=== PATIENT | male | born 1940 | race Caucasian/White ===

== ENCOUNTER 2017-10-05 12:36 | Outpatient (CLI) | payer MEDICARE, BC ==
[~2017-10-05 12:36] MED LIST: ALBU8.5H8 INH; ALPR-624 PO; ASPI-1071 PO; ATOR10TA87 PO; BENA20TA2 PO; CALC-1197 PO; COU5T PO; ESCI5TAB PO; FURO80TA87 PO; GABA-532 PO; HYDR-3972 PO; KRIL1CAP19 PO; MULT-1085 PO; OMEP40CA37 PO; POTA10TA10 PO; ROPI2TAB PO; SOTA80TA69 PO; TRAM50TA2 PO; TURM500C4 PO
== END 2017-10-05 23:59 | disposition home or self-care (01) ==
LOC: CARD DIAG 12:36
PROVIDERS: ATTEND Internal Medicine Cardiovascular Disease
DX: I08.1 Rheumatic disorders of both mitral and tricuspid valves (principal); I77.810 Thoracic aortic ectasia; J44.9 Chronic obstructive pulmonary disease, unspecified; I10 Essential (primary) hypertension; Z95.2 Presence of prosthetic heart valve; Z85.46 Personal history of malignant neoplasm of prostate
CPT/HCPCS: 93306

== ENCOUNTER → 2018-03-07 | Emergency (ER) | payer MEDICARE, BC ==
[~2018-03-07] VITALS: Ht 172.7 cm; Wt 98.0 kg
[~2018-03-07] MED LIST changes: +LIDOcaine 1.5% w/epinephrine 1:200,000 5ml ampul IJ ONE
[2018-03-07 08:14] VITALS: BP 98/56
== END | disposition home or self-care (01) ==
LOC: ER 08:13
DX: S61.512A Laceration without foreign body of left wrist, initial encounter (principal); Z95.0 Presence of cardiac pacemaker; Z88.8 Allergy status to other drugs, medicaments and biological substances; Z88.2 Allergy status to sulfonamides; Z79.82 Long term (current) use of aspirin; Z79.899 Other long term (current) drug therapy; Z79.01 Long term (current) use of anticoagulants; W26.0XXA Contact with knife, initial encounter; Y93.89 Activity, other specified; Y92.89 Other specified places as the place of occurrence of the external cause; Y99.8 Other external cause status
CPT/HCPCS: 12002; 99283; A6449; J3490

== ENCOUNTER 2018-04-13 18:35 | Emergency (ER) | payer MEDICARE, BC ==
[~2018-04-13] VITALS: Ht 172.7 cm; Wt 87.3 kg
[~2018-04-13 18:35] MED LIST changes: -LIDOcaine 1.5% w/epinephrine 1:200,000 5ml ampul IJ ONE; -SOTA80TA69 PO; +SOTA80TA73 PO
[2018-04-13 19:20] LABS: BASOPHILS % (AUTO) 0.9 % (0-1); EOSINOPHILS # (AUTO) 0.3 X10'3 (0-0.9); EOSINOPHILS % (AUTO) 4.6 % (0-6); HEMATOCRIT 39.5 % (42.0-52.0); HEMOGLOBIN 13.2 g/dl (14.0-17.9); LYMPHOCYTES # (AUTO) 1.8 X10'3 (1.1-4.8); LYMPHOCYTES % (AUTO) 32.2 % (21-51); MEAN CORPUSCULAR HEMOGLOBIN 32.3 PG (27.0-31.0); MEAN CORPUSCULAR HGB CONC 33.5 % (33.0-36.5); MEAN CORPUSCULAR VOLUME 96.3 FL (78-98); MEAN PLATELET VOLUME 5.9 FL (7.4-10.4); MONOCYTES # (AUTO) 0.5 X10'3 (0-0.9); MONOCYTES % (AUTO) 9.1 % (2-12); NEUTROPHILS # (AUTO) 3.1 X10'3 (1.8-7.7); NEUTROPHILS % (AUTO) 53.2 % (42-75); PLATELET COUNT 221 X10'3 (140-440); RED CELL DISTRIBUTION WIDTH 13.7 % (11.5-14.5); WHITE BLOOD COUNT 5.7 X10'3 (4.5-11.0)
[2018-04-13 19:31] LABS: INR 2.2 INR; PARTIAL THROMBOPLASTIN TIME 35 SECONDS (22-32); PROTHROMBIN TIME 22.3 SECONDS (9.0-12.0)
[2018-04-13 19:35] LABS: ALANINE AMINOTRANSFERASE 41 U/L (12-78); ALBUMIN 3.1 G/DL (3.4-5.0); ALBUMIN/GLOBULIN RATIO 0.8 (1.1-1.5); ALKALINE PHOSPHATASE 115 IU/L (46-116); ANION GAP 6 (8-16); ASPARTATE AMINO TRANSFERASE 30 U/L (10-37); BILIRUBIN,TOTAL 0.3 MG/DL (0.1-1.0); BLOOD UREA NITROGEN 29 MG/DL (7-18); BUN/CREATININE RATIO 28.4 (5.4-32.0); CALCIUM 8.2 MG/DL (8.5-10.1); CHLORIDE 102 MMOL/L (99-107); CREATININE 1.02 MG/DL (0.60-1.10); GLUCOSE 113 MG/DL (70-104); POTASSIUM 4.2 MMOL/L (3.5-5.1); SODIUM 137 MMOL/L (135-145); TOTAL CARBON DIOXIDE 29.5 MMOL/L (24-32); TOTAL PROTEIN 6.8 G/DL (6.4-8.2); eGFR 71 ML/MIN
[2018-04-13] MEDS ORDERED: normal saline 1000ML IV soln IVB ONE (20:55)
[2018-04-13 22:03] LABS: CLARITY,URINE CLEAR (Clear); COLOR,URINE YELLOW (Yellow); GLUCOSE, URINE NEGATIVE (Neg); KETONES,URINE NEGATIVE (Neg); LEUKOCYTE ESTERASE ,URINE NEGATIVE (Neg); NITRITES, URINE NEGATIVE (Neg); OCCULT BLOOD,URINE NEGATIVE (Neg); PH,URINE 5.5 (4.8-8.0); PROTEIN,URINE NEGATIVE (Neg); UA COLLECTION TYPE URINAL; UROBILINOGEN,URINE 0.2 E.U/dL (0.2-1.0)
[2018-04-13 22:18] VITALS: BP 109/68
== END 2018-04-13 22:25 | disposition home or self-care (01) ==
LOC: ER 18:36
DX: I95.9 Hypotension, unspecified (principal); Z95.0 Presence of cardiac pacemaker; Z88.8 Allergy status to other drugs, medicaments and biological substances; Z88.2 Allergy status to sulfonamides; Z79.01 Long term (current) use of anticoagulants; Z79.899 Other long term (current) drug therapy; Z79.82 Long term (current) use of aspirin
CPT/HCPCS: 36415; 71045; 80053; 81003; 84484; 85025; 85610; 85730; 93005; 99285; J7030

== ENCOUNTER 2018-06-08 21:11 | Emergency (ER) | payer MEDICARE, BC ==
[~2018-06-08] VITALS: Ht 172.7 cm; Wt 92.3 kg
[~2018-06-08 21:11] MED LIST changes: -ASPI-1071 PO; -BENA20TA2 PO; +BENA20TA82 PO; -KRIL1CAP19 PO
[2018-06-08 22:39] VITALS: BP 128/71
== END 2018-06-08 22:49 | disposition home or self-care (01) ==
LOC: ER 21:12
DX: S51.011A Laceration without foreign body of right elbow, initial encounter (principal); S80.211A Abrasion, right knee, initial encounter; Z88.1 Allergy status to other antibiotic agents; Z88.2 Allergy status to sulfonamides; Z79.899 Other long term (current) drug therapy; Z79.01 Long term (current) use of anticoagulants; Z95.0 Presence of cardiac pacemaker; W18.30XA Fall on same level, unspecified, initial encounter; Y93.89 Activity, other specified; Y92.098 Other place in other non-institutional residence as the place of occurrence of the external cause; Y99.8 Other external cause status
CPT/HCPCS: 99284; A6223; A6255; A6446; A6449

== ENCOUNTER 2018-12-28 13:28 | Outpatient (CLI) | payer MEDICARE, BC | END 2018-12-28 23:59 | disposition home or self-care (01) | LOC: CARD DIAG 13:28 | PROVIDERS: ATTEND Internal Medicine Cardiovascular Disease | DX: I08.1 Rheumatic disorders of both mitral and tricuspid valves (principal); I11.0 Hypertensive heart disease with heart failure; I50.22 Chronic systolic (congestive) heart failure; J44.9 Chronic obstructive pulmonary disease, unspecified; Z96.643 Presence of artificial hip joint, bilateral; Z96.652 Presence of left artificial knee joint; Z96.611 Presence of right artificial shoulder joint; Z88.1 Allergy status to other antibiotic agents; Z88.2 Allergy status to sulfonamides | CPT/HCPCS: 93306 ==

== ENCOUNTER 2019-01-03 07:36 | Outpatient (CLI) | payer MEDICARE, BC ==
[2019-01-03] VITALS (21 sets, daily range): BP systolic 73–109; BP diastolic 40–67
== END 2019-01-03 23:59 | disposition home or self-care (01) ==
LOC: CARD DIAG 07:36
PROVIDERS: ATTEND Internal Medicine Cardiovascular Disease
DX: R42 Dizziness and giddiness (principal); I10 Essential (primary) hypertension; J44.9 Chronic obstructive pulmonary disease, unspecified; Z87.891 Personal history of nicotine dependence; Z96.643 Presence of artificial hip joint, bilateral; Z96.652 Presence of left artificial knee joint; Z96.611 Presence of right artificial shoulder joint
CPT/HCPCS: 93660

== ENCOUNTER 2019-02-16 13:13 | Emergency (ER) | payer MEDICARE, BC ==
[~2019-02-16] VITALS: Ht 172.7 cm; Wt 93.0 kg
[2019-02-16 14:10] LABS: CLARITY,URINE CLEAR (Clear); COLOR,URINE YELLOW (Yellow); GLUCOSE, URINE NEGATIVE (Neg); KETONES,URINE NEGATIVE (Neg); LEUKOCYTE ESTERASE ,URINE NEGATIVE (Neg); NITRITES, URINE NEGATIVE (Neg); OCCULT BLOOD,URINE NEGATIVE (Neg); PH,URINE 5.5 (4.8-8.0); PROTEIN,URINE NEGATIVE (Neg); UROBILINOGEN,URINE 0.2 E.U/dL (0.2-1.0)
[2019-02-16 14:11] LABS: UA COLLECTION TYPE VOIDED
[2019-02-16 14:38] LABS: BASOPHILS % (AUTO) 0.4 % (0-1); EOSINOPHILS # (AUTO) 0.1 X10'3 (0-0.9); EOSINOPHILS % (AUTO) 1.6 % (0-6); HEMATOCRIT 39.6 % (42.0-52.0); LYMPHOCYTES # (AUTO) 1.4 X10'3 (1.1-4.8); MEAN CORPUSCULAR HEMOGLOBIN 31.2 PG (27.0-31.0); MEAN CORPUSCULAR HGB CONC 32.8 g/dL (33.0-36.5); MEAN PLATELET VOLUME 6.1 FL (7.4-10.4); MONOCYTES # (AUTO) 0.7 X10'3 (0-0.9); MONOCYTES % (AUTO) 8.9 % (2-12); NEUTROPHILS # (AUTO) 5.8 X10'3 (1.8-7.7); NEUTROPHILS % (AUTO) 72.1 % (42-75); PLATELET COUNT 227 X10'3 (140-440); RED BLOOD COUNT 4.16 X10'6 (4.70-6.10); RED CELL DISTRIBUTION WIDTH 15.5 % (11.5-14.5); WHITE BLOOD COUNT 8.1 X10'3 (4.5-11.0)
[2019-02-16 14:46] LABS: ALBUMIN 3.2 G/DL (3.4-5.0); ANION GAP 10 (8-16); BLOOD UREA NITROGEN 45 MG/DL (7-18); BUN/CREATININE RATIO 44.6 (5.4-32.0); CALCIUM 8.4 MG/DL (8.5-10.1); CHLORIDE 103 MMOL/L (99-107); CREATININE 1.01 MG/DL (0.60-1.10); GLUCOSE 98 MG/DL (70-104); POTASSIUM 3.6 MMOL/L (3.5-5.1); SODIUM 140 MMOL/L (135-145); TOTAL CARBON DIOXIDE 26.9 MMOL/L (24-32); eGFR 72 ML/MIN
[2019-02-16 16:00] VITALS: BP 104/62
== END 2019-02-16 16:01 | disposition home or self-care (01) ==
LOC: ER 13:14
DX: K92.2 Gastrointestinal hemorrhage, unspecified (principal); F17.210 Nicotine dependence, cigarettes, uncomplicated; Z95.0 Presence of cardiac pacemaker; Z88.1 Allergy status to other antibiotic agents; Z88.2 Allergy status to sulfonamides; Z88.8 Allergy status to other drugs, medicaments and biological substances
CPT/HCPCS: 36415; 80048; 81003; 85025; 93005; 99284

== ENCOUNTER 2020-04-10 06:44 | Day surgery (SDC) | payer MEDICARE, BC ==
[2020-04-09 14:42] LABS: BASOPHILS % (AUTO) 0.8 % (0-1); EOSINOPHILS # (AUTO) 0.3 X10'3 (0-0.9); EOSINOPHILS % (AUTO) 5.4 % (0-6); HEMATOCRIT 34.4 % (42.0-52.0); HEMOGLOBIN 10.9 g/dl (14.0-17.9); LYMPHOCYTES # (AUTO) 1.2 X10'3 (1.1-4.8); LYMPHOCYTES % (AUTO) 20.6 % (21-51); MEAN CORPUSCULAR HGB CONC 31.6 g/dL (33.0-36.5); MEAN CORPUSCULAR VOLUME 88.4 FL (78-98); MEAN PLATELET VOLUME 6.2 FL (7.4-10.4); MONOCYTES # (AUTO) 0.6 X10'3 (0-0.9); MONOCYTES % (AUTO) 10.1 % (2-12); NEUTROPHILS # (AUTO) 3.8 X10'3 (1.8-7.7); NEUTROPHILS % (AUTO) 63.1 % (42-75); PLATELET COUNT 198 X10'3 (140-440); RED BLOOD COUNT 3.89 X10'6 (4.70-6.10)
[2020-04-09 14:53] LABS: ANION GAP 9 (8-16); BLOOD UREA NITROGEN 28 MG/DL (7-18); CALCIUM 8.4 MG/DL (8.5-10.1); CHLORIDE 108 MMOL/L (99-107); GLUCOSE 103 MG/DL (70-104); POTASSIUM 3.8 MMOL/L (3.5-5.1); SODIUM 146 MMOL/L (135-145); TOTAL CARBON DIOXIDE 28.9 MMOL/L (24-32); eGFR 72 ML/MIN
[2020-04-09 14:56] LABS: PARTIAL THROMBOPLASTIN TIME 29 SECONDS (22-32)
[2020-04-10] VITALS (15 sets, daily range): BP systolic 103–158; BP diastolic 50–92
[~2020-04-10] VITALS: Ht 172.7 cm; Wt 109.7 kg
[~2020-04-10 06:44] MED LIST changes: -ALPR-624 PO; -BENA20TA82 PO; +BUSP10TA3 PO; -COU5T PO; +FERR325T28 PO; +MECL-159 PO; -OMEP40CA37 PO; +PANT40TA4 PO; +SUCR1TAB34 PO; -TRAM50TA2 PO; -TURM500C4 PO; +WARF-113 PO
[2020-04-10] MEDS ORDERED: normal saline 1,000 ML IV SCH (07:05)
[2020-04-10] MEDS ORDERED: LORazepam 0.5 MG tablet PO PRN (07:05)
[2020-04-10] MEDS ORDERED: diphenhydrAMINE 25mg capsule PO PRN (07:05)
[2020-04-10] MEDS ORDERED: VITAMIN D3 (07:57)
[2020-04-10] MEDS ORDERED: KRIL500C PO (07:57)
[2020-04-10] MEDS ORDERED: FURO40TA4 PO (07:57)
[2020-04-10] MEDS ORDERED: WARF-113 PO (07:57)
[2020-04-10] MEDS ORDERED: OMEP-50 PO (07:57)
[2020-04-10] MEDS ORDERED: WARF6TAB PO (07:57)
[2020-04-10] MEDS ORDERED: CALCIUM (07:57)
[2020-04-10] MEDS ORDERED: fentaNYL/PF 50MCG/1 ML 2ML syringe ONE (08:56)
[2020-04-10] MEDS ORDERED: verapamil 2.5 mg/ml inj IV ONE (08:56)
[2020-04-10] MEDS ORDERED: nitroGLYCERIN-Tridil 50MG/D5W 250 ML IV ONE (08:56)
[2020-04-10] MEDS ORDERED: LIDOcaine 1% (10mg/ml)w/preservative injection 20ml MDV ONE (08:57)
[2020-04-10] MEDS ORDERED: heparin 1,000unit/ml 10ml vial 10 ML ONE (08:57)
[2020-04-10] MEDS ORDERED: midazolam 2 mg/2 ml injection ONE (08:57)
[2020-04-10] MEDS ORDERED: iohexol 350 MG/ML 50ML vial IV ONE (08:57)
[2020-04-10] MEDS ORDERED: iohexol 350MG/ML 100ml bottle IV ONE (08:57)
[2020-04-10] MEDS ORDERED: furosemide 40mg/4ml inj IV ONE (11:05)
[2020-04-10] MEDS ORDERED: potassium Cl 20 mEq SR tablet PO STA (11:05)
[2020-04-10 13:01] LABS: ISTAT HGB ART 10.9 g/dl (14.0-18.0); ISTAT Hct ART 32 %PCV (42-52); ISTAT O2 SATURATION ARTERIAL 99 % (95-98); ISTAT SOURCE ART
--- NOTE | 2020-04-10 15:00 | NUR ---
vascular band removed, cleansed with sterile 4x4 and N.S., site dressed with sterile 2x2 and tegaderm. folded 4x4 and coban placed over drsg for support and slight pressure, pt aware may remove outer drsg for comfort. pt states understanding.
== END 2020-04-10 17:00 | disposition home or self-care (01) ==
LOC: SSTAY O 06:44
PROVIDERS: ATTEND Internal Medicine Cardiovascular Disease
DX: R94.39 Abnormal result of other cardiovascular function study (principal); I25.10 Atherosclerotic heart disease of native coronary artery without angina pectoris; E78.5 Hyperlipidemia, unspecified; I48.0 Paroxysmal atrial fibrillation; I11.0 Hypertensive heart disease with heart failure; I50.30 Unspecified diastolic (congestive) heart failure; G47.30 Sleep apnea, unspecified; E66.3 Overweight; Z68.36 Body mass index [BMI] 36.0-36.9, adult; I27.89 Other specified pulmonary heart diseases; I34.0 Nonrheumatic mitral (valve) insufficiency; Z95.5 Presence of coronary angioplasty implant and graft; Z95.4 Presence of other heart-valve replacement; Z79.899 Other long term (current) drug therapy; Z98.890 Other specified postprocedural states; Z89.422 Acquired absence of other left toe(s); Z95.0 Presence of cardiac pacemaker; Z98.84 Bariatric surgery status; Z72.89 Other problems related to lifestyle; Z87.891 Personal history of nicotine dependence; Z82.49 Family history of ischemic heart disease and other diseases of the circulatory system; Z80.42 Family history of malignant neoplasm of prostate
CPT/HCPCS: 36415; 80048; 82803; 85014; 85025; 85610; 85730; 93005; 93460; 99152; 99153; C1769; C1894; J1644; J1940; J2001; J2250; J3010; J7030; Q9967; A4620; J3490

== ENCOUNTER 2021-02-24 12:49 | Emergency (ER) | payer MEDICARE, BC ==
[~2021-02-24] VITALS: Ht 172.7 cm; Wt 97.7 kg
[~2021-02-24 12:49] MED LIST changes: -ALBU8.5H8 INH; -BUSP10TA3 PO; -CALC-1197 PO; +CALCIUM; -FERR325T28 PO; +FURO40TA4 PO; -FURO80TA87 PO; -HYDR-3972 PO; +KRIL500C PO; -MECL-159 PO; +OMEP-50 PO; -PANT40TA4 PO; -SUCR1TAB34 PO; +VITAMIN D3; +WARF6TAB PO
[2021-02-24 13:35] VITALS: BP 159/75
[2021-02-24 14:47] LABS: BASOPHILS # (AUTO) 0.1 X10'3 (0-0.2); EOSINOPHILS # (AUTO) 0.1 X10'3 (0-0.9); HEMOGLOBIN 13.3 g/dl (14.0-17.9)
[2021-02-24 14:50] LABS: BASOPHILS % (AUTO) 0.9 % (0-1); HEMATOCRIT 40.9 % (42.0-52.0); LYMPHOCYTES # (AUTO) 1.3 X10'3 (1.1-4.8); LYMPHOCYTES % (AUTO) 21.6 % (21-51); MEAN CORPUSCULAR HEMOGLOBIN 29.6 PG (27.0-31.0); MEAN CORPUSCULAR HGB CONC 32.5 g/dL (33.0-36.5); MEAN CORPUSCULAR VOLUME 90.9 FL (78-98); MEAN PLATELET VOLUME 6.8 FL (7.4-10.4); MONOCYTES # (AUTO) 0.6 X10'3 (0-0.9); MONOCYTES % (AUTO) 10.1 % (2-12); NEUTROPHILS # (AUTO) 3.8 X10'3 (1.8-7.7); NEUTROPHILS % (AUTO) 65.4 % (42-75); PLATELET COUNT 182 X10'3 (140-440); RED CELL DISTRIBUTION WIDTH 17.3 % (11.5-14.5); WHITE BLOOD COUNT 5.9 X10'3 (4.5-11.0)
[2021-02-24 14:58] LABS: ALANINE AMINOTRANSFERASE 37 U/L (12-78); ALBUMIN 3.3 G/DL (3.4-5.0); ALKALINE PHOSPHATASE 87 IU/L (46-116); ANION GAP 8 (8-16); ASPARTATE AMINO TRANSFERASE 31 U/L (10-37); BILIRUBIN,TOTAL 0.5 MG/DL (0.1-1.0); BLOOD UREA NITROGEN 16 MG/DL (7-18); BUN/CREATININE RATIO 21.1 (5.4-32.0); CALCIUM 8.2 MG/DL (8.5-10.1); CHLORIDE 108 MMOL/L (99-107); CREATININE 0.76 MG/DL (0.60-1.10); GLUCOSE 93 MG/DL (70-104); POTASSIUM 4.3 MMOL/L (3.5-5.1); SODIUM 144 MMOL/L (135-145); TOTAL CARBON DIOXIDE 27.7 MMOL/L (24-32); TOTAL PROTEIN 6.7 G/DL (6.4-8.2); eGFR > 90 ML/MIN
[2021-02-24 15:05] LABS: TROPONIN I < 0.04 NG/ML (0.0-0.05)
[2021-02-24 15:27] LABS: CLARITY,URINE CLEAR (Clear); COLOR,URINE STRAW (Yellow); GLUCOSE, URINE NEGATIVE (Neg); KETONES,URINE NEGATIVE (Neg); LEUKOCYTE ESTERASE ,URINE NEGATIVE (Neg); NITRITES, URINE NEGATIVE (Neg); OCCULT BLOOD,URINE NEGATIVE (Neg); PH,URINE 5.5 (4.8-8.0); PROTEIN,URINE NEGATIVE (Neg); UROBILINOGEN,URINE 0.2 E.U/dL (0.2-1.0)
[2021-02-24 15:30] LABS: UA COLLECTION TYPE VOIDED
== END 2021-02-24 16:12 | disposition home or self-care (01) ==
LOC: ER 12:49
DX: R53.1 Weakness (principal); R42 Dizziness and giddiness; R19.7 Diarrhea, unspecified; I48.91 Unspecified atrial fibrillation; I25.10 Atherosclerotic heart disease of native coronary artery without angina pectoris; Z85.9 Personal history of malignant neoplasm, unspecified; Z95.0 Presence of cardiac pacemaker; Z98.890 Other specified postprocedural states; Z72.89 Other problems related to lifestyle; Z88.1 Allergy status to other antibiotic agents; Z88.8 Allergy status to other drugs, medicaments and biological substances; Z79.899 Other long term (current) drug therapy
CPT/HCPCS: 36415; 70450; 71045; 80053; 81003; 83880; 84484; 85025; 85610; 93005; 99285

== ENCOUNTER 2022-09-23 09:12 | Day surgery (SDC) | payer MEDICARE, BC ==
[2022-09-22 16:29] LABS: BASOPHILS % (AUTO) 0.7 % (0-1); EOSINOPHILS # (AUTO) 0.1 X10'3 (0-0.9); EOSINOPHILS % (AUTO) 1.9 % (0-6); HEMOGLOBIN 15.4 g/dl (14.0-17.9); LYMPHOCYTES # (AUTO) 1.1 X10'3 (1.1-4.8); LYMPHOCYTES % (AUTO) 18.4 % (21-51); MEAN CORPUSCULAR HEMOGLOBIN 31.2 PG (27.0-31.0); MEAN CORPUSCULAR HGB CONC 32.8 g/dL (33.0-36.5); MEAN CORPUSCULAR VOLUME 95.1 FL (78-98); MEAN PLATELET VOLUME 6.7 FL (7.4-10.4); MONOCYTES # (AUTO) 0.5 X10'3 (0-0.9); MONOCYTES % (AUTO) 7.7 % (2-12); NEUTROPHILS # (AUTO) 4.4 X10'3 (1.8-7.7); NEUTROPHILS % (AUTO) 71.3 % (42-75); PLATELET COUNT 190 X10'3 (140-440); RED BLOOD COUNT 4.95 X10'6 (4.70-6.10); RED CELL DISTRIBUTION WIDTH 14.3 % (11.5-14.5); WHITE BLOOD COUNT 6.1 X10'3 (4.5-11.0)
[2022-09-22 16:44] LABS: ALBUMIN 3.4 G/DL (3.4-5.0); APTT 28 SECONDS (22-32); BLOOD UREA NITROGEN 13 MG/DL (7-18); CALCIUM 8.4 MG/DL (8.5-10.1); CREATININE 0.81 MG/DL (0.60-1.10); GLUCOSE 104 MG/DL (70-104); TOTAL CARBON DIOXIDE 29.7 MMOL/L (24-32); eGFR > 90 ML/MIN
[2022-09-22 17:08] LABS: ANION GAP 8 (8-16); CHLORIDE 106 MMOL/L (99-107); POTASSIUM 4.3 MMOL/L (3.5-5.1); SODIUM 144 MMOL/L (135-145)
[~2022-09-23] VITALS: Ht 172.7 cm; Wt 101.3 kg
[2022-09-23] VITALS (10 sets, daily range): BP systolic 133–151; BP diastolic 74–93
[~2022-09-23 09:12] MED LIST changes: -OMEP-50 PO; +OMEP20CA16 PO; +POTA-188 PO; -POTA10TA10 PO
[2022-09-23] MEDS ORDERED: BUSP10TA3 PO (10:29)
[2022-09-23] MEDS ORDERED: HYDR-3973 PO (10:29)
[2022-09-23] MEDS ORDERED: APIX5TAB3 PO (10:29)
[2022-09-23] MEDS ORDERED: diphenhydrAMINE 25mg capsule PO ONE (10:30)
[2022-09-23] MEDS ORDERED: normal saline 1000ml 1,000 ML IV SCH ×2 (10:35→12:40)
[2022-09-23] MEDS ORDERED: PANT20TA18 PO (10:37)
[2022-09-23] MEDS ORDERED: POTA8TAB69 PO (10:41)
[2022-09-23] MEDS ORDERED: Vitamin D3 PO (10:42)
[2022-09-23] MEDS ORDERED: verapamil 2.5 mg/ml inj IV ONE (10:51)
[2022-09-23] MEDS ORDERED: midazolam 1 mg/ML 2ml injection ONE (10:51)
[2022-09-23] MEDS ORDERED: nitroGLYCERIN-Tridil 50MG/D5W 250 ML IV ONE (10:51)
[2022-09-23] MEDS ORDERED: fentaNYL/PF 50MCG/1 ML 2ML syringe ONE (10:51)
[2022-09-23] MEDS ORDERED: iohexol 350MG/ML 100ml bottle IV ONE ×2 (10:52)
[2022-09-23] MEDS ORDERED: heparin 1,000unit/ml 10ml vial 10 ML ONE (10:52)
[2022-09-23] MEDS ORDERED: LIDOcaine 1% (10mg/ml) 2ml vial ONE (10:57)
[2022-09-23] MEDS ORDERED: LORazepam 0.5 MG tablet PO SCH (11:00)
[2022-09-23] MEDS ORDERED: HYDROcodone/acetaminophen 10/325mg tab PO PRN (12:40)
[2022-09-23] MEDS ORDERED: HYDROcodone/acetaminophen 5mg/325mg tablet PO PRN (12:40)
== END 2022-09-23 16:52 | disposition home or self-care (01) ==
LOC: SSTAY O 09:12
PROVIDERS: ATTEND Internal Medicine Cardiovascular Disease
DX: I25.10 Atherosclerotic heart disease of native coronary artery without angina pectoris (principal); I11.0 Hypertensive heart disease with heart failure; I48.0 Paroxysmal atrial fibrillation; I50.30 Unspecified diastolic (congestive) heart failure; I27.29 Other secondary pulmonary hypertension; E78.5 Hyperlipidemia, unspecified; G47.30 Sleep apnea, unspecified; E13.9 Other specified diabetes mellitus without complications; E66.3 Overweight; I35.0 Nonrheumatic aortic (valve) stenosis; Z98.890 Other specified postprocedural states; Z89.412 Acquired absence of left great toe; Z98.84 Bariatric surgery status; Z82.49 Family history of ischemic heart disease and other diseases of the circulatory system; Z80.42 Family history of malignant neoplasm of prostate; Z87.891 Personal history of nicotine dependence; Z95.0 Presence of cardiac pacemaker; Z95.5 Presence of coronary angioplasty implant and graft; Z95.2 Presence of prosthetic heart valve; Z88.1 Allergy status to other antibiotic agents; Z88.2 Allergy status to sulfonamides; Z79.01 Long term (current) use of anticoagulants; Z79.899 Other long term (current) drug therapy; Z68.34 Body mass index [BMI] 34.0-34.9, adult
CPT/HCPCS: 36415; 76937; 80048; 85025; 85610; 85730; 93005; 93458; 99152; 99153; C1769; C1894; J1644; J2250; J3010; J3490; J7030; Q0163; Q9967; A6258; A6402